=== PATIENT | female | born 1975 | race Two or more races ===

== ENCOUNTER → 2018-02-18 | Emergency (ER) | payer OTHER ==
[~2018-02-18] VITALS: Ht 149.9 cm; Wt 52.6 kg
[~2018-02-18] MED LIST: BACTRIM DS TAB1 EACH PO; COZAAR100 MG; DICLOFENAC POTA50 MG; NAPROXEN500 MG; TRAMADOL HCL50 MG
== END | disposition home or self-care (01) ==
LOC: ER 22:09
DX: M54.2 Cervicalgia (principal); M54.6 Pain in thoracic spine; M54.5 Low back pain; M25.511 Pain in right shoulder; G89.11 Acute pain due to trauma